=== PATIENT | male | born 1965 | race Two or more races ===

== ENCOUNTER 2020-02-05 23:47 | Inpatient (IN) | payer MEDICAID ==
[2020-02-06] VITALS (15 sets, daily range): BP systolic 106–137; BP diastolic 59–82
[2020-02-06] MEDS ORDERED: MAG HYDROX/AL HYDROX/SIMETH 30 ML UDC PO PRN (00:30)
[2020-02-06] MEDS ORDERED: MORPHINE SULFATE INJ 2 MG/ML DISP.SYRIN IV PRN (00:30)
[2020-02-06] MEDS ORDERED: NITROGLYCERIN 0.4 MG/TAB BOTTLE SL PRN (00:30)
[2020-02-06] MEDS ORDERED: ACETAMINOPHEN 325 MG TABLET PO PRN (00:30)
[2020-02-06] MEDS ORDERED: ONDANSETRON HCL/PF 4 MG/2 ML VIAL IVP PRN (00:30)
[2020-02-06] MEDS ORDERED: Z GUARD REMEDY 2 OZ OINT TP PRN (00:30)
[2020-02-06] MEDS ORDERED: TEMAZEPAM 15 MG CAPSULE PO PRN (00:30)
[2020-02-06] MEDS ORDERED: MAGNESIUM HYDROXIDE 30 ML UDC PO PRN (00:30)
--- NOTE | 2020-02-06 00:50 | NUR ---
RN OPENING NOTE ADMIT PATIENT FROM [facility] TO [facility] TO [facility] ALERT ORIENTED X4 VERBALLY RESPONSIVE NO SOB NOT ACUTE DISTRESS NOTED ON ROOM AIR 98% DENIES ANY PAIN,IV LINE IS ON RIGHT AC 20 G INTACT PATENT FLUSHED AND RIGHT,LEFT AC 20G INTACT PATENT AMBULATORY CONTINENT TO BOWEL AND BLADDER NPO TOMORROW FOR ADMISSIONS CLERK BED IN LOW POSITON AND LOCKED CONTINUE TO MONITOR.
[2020-02-06 06:23] LABS: BASOPHILS # (AUTO) 0.1 /CMM (0.0-0.2); BASOPHILS % (AUTO) 0.5 % (0.0-2.0); EOSINOPHILS % (AUTO) 1.2 % (0.0-6.0); HEMATOCRIT 45 % (39-51); HEMOGLOBIN 14.9 g/dL (13.5-17.5); LYMPHOCYTES # (AUTO) 3.5 /CMM (0.8-4.8); LYMPHOCYTES % (AUTO) 28.4 % (20.0-44.0); MEAN CORPUSCULAR HGB CONC 33 g/dl (31.0-36.0); MEAN CORPUSCULAR VOLUME 98 fL (80-96); MONOCYTES # (AUTO) 1.1 /CMM (0.1-1.30); MONOCYTES % (AUTO) 8.7 % (2.0-12.0); NEUTROPHILS # (AUTO) 7.6 /CMM (1.8-8.9); NEUTROPHILS % (AUTO) 61.2 % (43.0-81.0); PLATELET COUNT (AUTO) 187 /CMM (150-450); RED BLOOD CELL COUNT(AUTO) 4.59 MIL/uL (4.5-6.0); WHITE BLOOD COUNT (AUTO) 12.4 K/uL (4.3-11.0)
[2020-02-06] MEDS ORDERED: IV NS 0.9% 1,000 ML ONE (06:23)
[2020-02-06] MEDS ORDERED: IODIXANOL 150 ML IV ONE ×2 (06:24→08:24)
[2020-02-06] MEDS ORDERED: IV SET PRIMARY PUMP SET 1 EA INFUS.SET MC ONE (06:26)
--- NOTE | 2020-02-06 06:30 | NUR ---
RN NOTE PATIENT LEFT [facility] FOR REHABILITATION COUNSELOR NPO IN STABLE CONDITION.
[2020-02-06 06:32] LABS: CALCIUM, SERUM 9.2 mg/dL (8.5-10.1); CREATININE 1.1 mg/dL (0.6-1.3); POTASSIUM 3.5 mmol/L (3.5-5.1)
[2020-02-06] MEDS ORDERED: FENTANYL PF 100MCG/2ML AMPUL ONE (06:52)
[2020-02-06] MEDS ORDERED: MIDAZOLAM HCL 2 MG/2ML VIAL ONE ×2 (06:52→07:55)
[2020-02-06] MEDS ORDERED: HEPARIN SODIUM, PORCINE 1,000 UNIT/ML VIAL ONE ×2 (06:53→07:47)
[2020-02-06] MEDS ORDERED: NITROGLYCERIN ICAR 1,000 MCG/10 ML VIAL ICAR ONE ×3 (07:10→08:01)
[2020-02-06] MEDS ORDERED: LIDOCAINE HCL/PF 1% 30 ML SDV ONE (07:22)
--- NOTE | 2020-02-06 07:30 | NUR ---
RN OPENING NOTE RECEIVED REPORT ON PATIENT, PATIENT IS CURRENTLY IN CARDIAC CAR INSPECTOR. BASED ON REPORT PATIENT HAS IV IN LEFT AC 20 AND RIGHT AC 20, SKIN INTACT, A/O X 4, WAS NPO BUT WILL GO REFERENCE POSTOP ORDERS WHEN BACK ON THE UNIT. ONCE PATIENT RETURNS FULL HEAD TO TOE ASSESSMENT WILL BE DONE AND PATIENT SAFETY GOALS FULFILLED.
[2020-02-06] MEDS ORDERED: HEPARIN SODIUM, PORCINE 5000 UNITS/1 ML VIAL ONE (07:46)
[2020-02-06] MEDS ORDERED: VERAPAMIL HCL IV 5 MG/2 ML VIAL ONE (07:55)
[2020-02-06] MEDS ORDERED: IODIXANOL 320MG/ML 100 ML IV ONE (08:07)
--- NOTE | 2020-02-06 08:19 | NUR ---
RN NOTE RECEIVED CRITICAL LAB VALUE OF TROPONIN 27.913. NOTIFIED.
[2020-02-06] MEDS ORDERED: ASPIRIN 325 MG TABLET PO SCH (09:00)
--- NOTE | 2020-02-06 09:00 | NUR ---
RN NOTE PATIENT RETURNED FROM MANAGER DIVISION IN BED, WITH T R BAND AND INSTRUCTIONS FOR REMOVING AIR, A/O X4, NO S/S OF DISTRESS, VITALS WITHIN NORMAL LIMITS, IV R AC AND L AC INTACT PRESENT AND FLUSHES EASILY, WILL CONTINUE TO MONITOR FOR BLEEDING AT THE RIGHT WRIST AND PATIENT STATUS.
[2020-02-06] MEDS: CLOPIDOGREL BISULFATE 75 MG TABLET PO SCH (10:25)
[2020-02-06] MEDS: FUROSEMIDE 40 MG/4 ML VIAL IV SCH (10:25)
[2020-02-06] MEDS: PANTOPRAZOLE 40 MG VIAL IV SCH (10:25)
[2020-02-06] MEDS: ASPIRIN 325 MG TABLET PO SCH (10:25)
[2020-02-06] MEDS ORDERED: IV NS 0.9% 1,000 ML IV PRN (11:00)
--- NOTE | 2020-02-06 11:00 | NUR ---
IV NS 100ML/HR STARTED TO END AT 1700. DVT PUMP REFUSED BY PATIENT. EXPLAINED RISK AND BENEFITS. OFFERED 3X. DRUG SCREEN ORDERED BY , URINE COLLECTED PLACED IN [place] AND CALLED LABS TO STATUS CONTROLLER MRSA SWAB DONE ON BOTH NARES TOLERATED WELL. CALLED LABS TO STATUS CONTROLLER SPECIMEN. SISTER TED CALLED #: [phone] TO CHECK ON PATIENT.
--- NOTE | 2020-02-06 13:00 | NUR ---
RN NOTE TR BAND ON RIGHT WRIST REMOVED WITH SURGEON PRESENT.
--- NOTE | 2020-02-06 14:00 | NUR ---
PATIENT INSISTED ON GOING HOME TODAY. DR JASSO AT BEDSIDE. INFORMED PATIENT HE WILL BE KEPT HERE OVERNIGHT. PATIENT UNDERSTOOD.
--- NOTE | 2020-02-06 19:49 | NUR ---
RN CLOSING NOTE PATIENT HAS NO S/S OF DISTRESS, WENT TO CARDIAC CLOSED CIRCUIT SCREEN WATCHER TODAY, NO OCCLUSION FOUND, MD WANTS TO MONITOR FOR 24 HRS BECAUSE OF RISK OF WI OR STROKE, TROPONIN 27.913, A/O X4, VERBAL COMMUNICATION, SKIN INTACTT, T R BAND PLACED AFTER CARDIAC CLOSED CIRCUIT SCREEN WATCHER, REMOVED AIR ACCORDING TO ORDERS AND IS NOW REMOVED, NO S/S OF BLEEDING. WILL HAND OFF TO GRAIN ORIGINATION SPECIALIST NURSE.
--- NOTE | 2020-02-06 20:00 | NUR ---
TELE OPENING NOTE RECEIVED PT IN BED. AWAKE AND EATING DINNER. BREATHING EVEN AND UNLABORED WITH NO SOB OR ACUTE DISTRESS NOTED. DENIES ANY PAIN OR DISCOMFORT. LEFT AC #20 AND RIGHT AC #22 PATENT AND INTACT. SRX2 UP . ALL NEEDS RENDERED. WILL CONTINUE TO MONITOR.
[2020-02-07] VITALS: BP 126/67
[2020-02-07 04:00] VITALS: BP 120/64
[2020-02-07 06:34] LABS: BASOPHILS # (AUTO) 0.1 /CMM (0.0-0.2); BASOPHILS % (AUTO) 0.5 % (0.0-2.0); EOSINOPHILS % (AUTO) 1.9 % (0.0-6.0); HEMATOCRIT 39 % (39-51); LYMPHOCYTES # (AUTO) 2.3 /CMM (0.8-4.8); LYMPHOCYTES % (AUTO) 22.3 % (20.0-44.0); MEAN CORPUSCULAR HGB CONC 33 g/dl (31.0-36.0); MEAN CORPUSCULAR VOLUME 97 fL (80-96); MONOCYTES % (AUTO) 9.4 % (2.0-12.0); NEUTROPHILS # (AUTO) 6.9 /CMM (1.8-8.9); NEUTROPHILS % (AUTO) 65.9 % (43.0-81.0); PLATELET COUNT (AUTO) 164 /CMM (150-450); RED BLOOD CELL COUNT(AUTO) 4.03 MIL/uL (4.5-6.0); WHITE BLOOD COUNT (AUTO) 10.5 K/uL (4.3-11.0)
--- NOTE | 2020-02-07 06:37 | NUR ---
NETWORK LIAISON CLOSING NOTE PT IN BED. ASLEEP BUT EASILY AROUSABLE. BREATHING EVEN AND UNLABORED WITH NO SOB OR ACUTE DISTRESS NOTED ON RA. NO S/S OF PAIN NOTED. RAC AND LAC IV SITE PATENT AND INTACT. ALL NEEDS RENDERED .CALL LIGHT WITHIN REACH. BED IN LOWEST POSITION. SRX2 UP . WILL ENDORSE TO AM NURSE FOR CONTINUITY OF CARE.
[2020-02-07 07:02] LABS: CALCIUM, SERUM 8.1 mg/dL (8.5-10.1); MAGNESIUM 2.2 mg/dL (1.8-2.4); PHOSPHORUS 2.9 mg/dL (2.5-4.9); POTASSIUM 3.8 mmol/L (3.5-5.1)
--- NOTE | 2020-02-07 07:30 | NUR ---
OFFICE WORKFORCE PLANNER OPENING NOTES RECEIVED PT IN BED. AWAKE AND ORIENTED X1. BREATHING EVEN AND UNLABORED WITH NO SOB OR ACUTE DISTRESS NOTED. DENIES ANY PAIN OR DISCOMFORT. LEFT AC #20 AND RIGHT AC #22 PATENT AND INTACT. SRX2 UP . ON BILATERAL SOFT WRIST RESTRAINT, WITH NO SIGNS OF POOR CIRCULATION. WILL CONTINUE TO MONITOR. Addendum: 02/07/20 at 0806 by VINCE KAPLAN RN CLARIFICATION OF DOCUMENTATION: PT IS NOT ON BILATERAL SOFT WRIST RESTRAINT.
[2020-02-07 08:00] VITALS: BP 131/76
[2020-02-07] MEDS: PANTOPRAZOLE 40 MG VIAL IV SCH (08:41)
[2020-02-07] MEDS: CLOPIDOGREL BISULFATE 75 MG TABLET PO SCH (08:41)
[2020-02-07] MEDS: ASPIRIN 325 MG TABLET PO SCH (08:41)
[2020-02-07] MEDS: FUROSEMIDE 40 MG/4 ML VIAL IV SCH (08:41)
[2020-02-07] MEDS ORDERED: LEVO175T7 PO (09:08)
[2020-02-07] MEDS ORDERED: LOSA50TA39 PO (09:09)
[2020-02-07] MEDS ORDERED: ASPI-1169 PO (11:32)
[2020-02-07] MEDS ORDERED: CLOP75TA15 PO (11:32)
[2020-02-07] MEDS ORDERED: METO25TA6 PO (11:32)
[2020-02-07] MEDS ORDERED: ATOR40TA PO (11:32)
[2020-02-07 12:00] VITALS: BP 132/89
[2020-02-07] MEDS ORDERED: METOPROLOL TARTRATE 25 MG TABLET PO SCH (17:00)
--- NOTE | 2020-02-07 17:00 | NUR ---
PT ACCOMPANIED TO HOSPITAL LOBBY AND PICKED UP BY FAMILY MEMBER, DISCHARGED TO HOME IN STABLE CONDITION.
[2020-02-07] MEDS ORDERED: ATORVASTATIN 40 MG TABLET PO SCH (22:00)
[2020-02-08] MEDS ORDERED: LEVOTHYROXINE SODIUM 175 MCG TABLET PO SCH (07:30)
[2020-02-08] MEDS ORDERED: LOSARTAN POTASSIUM 50 MG TABLET PO SCH (09:00)
== END 2020-02-07 17:22 | disposition home or self-care (01) | DRG 190 ==
LOC: MEDSG1 02-06 00:44 → TELE-TD 02-06 02:03 → TELE1 02-06 13:14
PROVIDERS: ADMIT Internal Medicine; ATTEND Internal Medicine
PROC: 4A023N7 Measurement of Cardiac Sampling and Pressure, Left Heart, Percutaneous Approach (ICD-10-PCS; principal; 2020-02-06)
PROC: B211YZZ Fluoroscopy of Multiple Coronary Arteries using Other Contrast (ICD-10-PCS; 2020-02-06)
DX: I21.4 Non-ST elevation (NSTEMI) myocardial infarction (principal); I11.0 Hypertensive heart disease with heart failure; E03.9 Hypothyroidism, unspecified; I25.10 Atherosclerotic heart disease of native coronary artery without angina pectoris; Z87.891 Personal history of nicotine dependence; I50.33 Acute on chronic diastolic (congestive) heart failure; E66.9 Obesity, unspecified
CPT/HCPCS: 36415; 80048-TC; 80061-TC; 83735-TC; 84100-TC; 84484-TC; 85025-TC; 85610-TC; 85730-TC; 87081-TC; 93307-TC; 93544; C1887; C9113; G0378; G0500; J1644; J1940; J2250; J3010; J3490; J7030; Q9967

== ENCOUNTER 2023-11-01 04:48 | Emergency (ER) | payer MEDICAID, OTHER ==
[~2023-11-01] VITALS: Ht 170.2 cm; Wt 98.9 kg
[~2023-11-01 04:48] MED LIST: ASPI-1169 PO; ATOR40TA PO; CLOP75TA15 PO; LEVO175T7 PO; LOSA50TA39 PO; METO25TA6 PO
[2023-11-01 05:30] LABS: BASOPHILS # (AUTO) 0.1 K/uL (0.0-0.2); BASOPHILS % (AUTO) 0.9 % (0.0-2.0); EOSINOPHILS # (AUTO) 0.2 K/uL (0.0-0.7); EOSINOPHILS % (AUTO) 2.4 % (0.0-6.0); HEMATOCRIT 43 % (39-51); HEMOGLOBIN 14.4 g/dL (13.5-17.5); LYMPHOCYTES # (AUTO) 3.2 K/uL (0.8-4.8); LYMPHOCYTES % (AUTO) 35.7 % (20.0-44.0); MEAN CORPUSCULAR HEMOGLOBIN 32 PG (26.0-33.0); MEAN CORPUSCULAR HGB CONC 34 g/dl (31.0-36.0); MEAN CORPUSCULAR VOLUME 93 fL (80-96); MONOCYTES # (AUTO) 0.6 K/uL (0.1-1.30); MONOCYTES % (AUTO) 6.2 % (2.0-12.0); NEUTROPHILS # (AUTO) 4.9 K/uL (1.8-8.9); NEUTROPHILS % (AUTO) 54.8 % (43.0-81.0); PLATELET COUNT (AUTO) 164 K/uL (150-450); RED BLOOD CELL COUNT(AUTO) 4.56 MIL/uL (4.5-6.0); RED CELL DISTRIBUTION WIDTH 13.8 % (11.5-15.0); WHITE BLOOD COUNT (AUTO) 8.9 K/uL (4.3-11.0)
[2023-11-01 05:40] LABS: INR 1.07 (0.91-1.10); PROTHROMBIN TIME 11.3 SECS (9.2-11.1)
[2023-11-01 06:31] VITALS: BP 164/109; TEMP 98; O2SAT 98
== END 2023-11-01 06:32 | disposition home or self-care (01) ==
LOC: ER 04:49
DX: R04.0 Epistaxis (principal); I10 Essential (primary) hypertension; I25.2 Old myocardial infarction; I25.10 Atherosclerotic heart disease of native coronary artery without angina pectoris
CPT/HCPCS: 99283; 85025; 85610; 36415; A6403